=== PATIENT | female | born 1935 | race Caucasian/White ===

== ENCOUNTER 2023-07-22 12:07 | Emergency (ER) | payer MEDICARE, OTHER, SELFPAY ==
[2023-07-22 12:10] VITALS: BP 109/74; PULSE 85; RESP 22; TEMP 36.8; O2SAT 96
--- NOTE | 2023-07-22 12:33 | XRR_ITS ---
PROCEDURE INFORMATION: Exam: XR Chest Exam date and time: 07/22/2023 12:47 PM Age: 88 years old Clinical indication: Cough and dyspnea; Additional info: Dyspnea/cough TECHNIQUE: Imaging protocol: Radiologic exam of the chest. Views: 1 view. COMPARISON: No relevant prior studies available. FINDINGS: Lungs: No consolidation. Pleural spaces: No sizable pleural effusion or pneumothorax. Heart/Mediastinum: No cardiomegaly. Bones/joints: Unremarkable. XR/XR chest 1V portable [id number] IMPRESSION: No acute intrathoracic findings.
--- NOTE | 2023-07-22 12:39 | ECG_ITS ---
[facility] Test Date: 2023-07-22 Pat Name: Cordell Mcdonald Department: Room: Gender: Female Delivery Director: : [id number] Requested By: Mohinder Marquez Order Number: [id number] Carina MD: Keaton Celestin M.D. Measurements Intervals [place] Rate: 81 P: 95 IL: 156 QRS: -28 QRSD: 78 T: 82 QT: 346 QTc: 402 Interpretive Statements SINUS RHYTHM WITH OCCASIONAL SUPRAVENTRICULAR PREMATURE COMPLEXES BORDERLINE LEFT AXIS DEVIATION [QRS AXIS < -20] LOW QRS VOLTAGE IN PRECORDIAL LEADS [QRS DEFLECTION < 1.0 mV IN CHEST LEADS] NONSPECIFIC T-WAVE ABNORMALITY No previous ECG available for comparison Electronically Signed On 07-22-2023 15:28:10 PIANO BENCH ASSEMBLER by Keaton Celestin M.D. [id number]
[2023-07-22 12:57] LABS: ABG PCO2 19.1 mmHg (35-45); ABG PH Result 7.53 (7.35-7.45); Arterial Blood Gas Hematocrit 30.3 % (37-47); Base Excess ABG -5.4 mmol/L (-2.0-2.0); Blood Gas Allen Test Pos; Blood Gas Operator Identificat WALCI; Blood Gas Sample Site Radial, right; Blood Gas Sample Type Arterial; Carboxyhemoglobin 0.1 %THgb (0.4-20.1); HCO3 ABG 15.8 mmol/L (22-26); HGB O2 Sat > 100.0 % (95-100); Ionized Calcium Level - ABG 1.2 mmol/L (1.1-1.4); Methemoglobin < 0.0 % (0.4-1.5); Oxygen Device NRB; Oxygen Saturation ABG > 100.0; Potassium Level - ABG 4.3 mmol/L (3.5-5.0); Total Hemoglobin 9.9 g/dL (12-16)
[2023-07-22 13:11] LABS: Basophils % 0.1 %; Hematocrit 28.7 % (36-47); Lymphocytes # 1.5 10^3/uL (0.8-4.8); Lymphocytes % 9.5 %; Mean Corpuscular HGB Conc 34.1 g/dL (30-55); Mean Corpuscular Hemoglobin 29.6 pg (27-33); Mean Corpuscular Volume 86.7 fl (85-98); Mean Platelet Volume 9.7 fL (7.4-10.4); Monocytes # 1.1 10^3/uL (0.2-0.9); Neutrophils # 12.84 10^3/uL (1.8-7.7); Neutrophils % 82.3 %; Nucleated Red Blood Cells % 0 %; Platelet Count 563 10^3/cmm (157-399); Red Blood Count 3.31 10^6/uL (3.85-5.65); Red Cell Distribution Width 13.2 % (12.1-15.1); White Blood Count 15.62 10^3/uL (3.29-11.43)
[2023-07-22 13:12] LABS: Lactic Sepsis W/Reflex 1.6 mmol/L (0.5-2.2)
[2023-07-22 13:13] LABS: Influenza A by IFA negative (Negative); Influenza B by IFA negative (Negative)
[2023-07-22 13:13] LABS: Troponin(5th) Baseline 37 ng/L (0-10)
[2023-07-22 13:21] LABS: Alanine Aminotransferase 13 U/L (0-33); Albumin Level 3.6 g/dL (3.5-5.2); Alkaline Phosphatase 76 U/L (35-105); Anion Gap 21.3 (5-19); Aspartate Amino Transferase 15 U/L (0-32); Calcium 9.7 mg/dL (8.5-10.5); Carbon Dioxide 17 mmol/L (22-29); Chloride 95 mmol/L (98-107); Creatine Phosphokinase 146 U/L (26-192); Glucose 108 mg/dL (65-115); NT Pro B Type Natriuretic Pept 980 pg/mL (0-450); Osmolality Calculated 301 mOsm/kg (285-295); Potassium 4.3 mmol/L (3.5-5.1); Sodium 129 mmol/L (136-145); Total Bilirubin 0.2 mg/dL (0.15-1.2); Total Protein 6.6 g/dL (6.6-8.7)
[2023-07-22 13:30] LABS: Blood Urea Nitrogen 103 mg/dL (8-23)
--- NOTE | 2023-07-22 13:32 | W.ED.SOB ---
HPI - SOB/Dyspnea General: Chief Complaint: Shortness of Breath/Dyspnea Stated Complaint: resp distress Time Seen by Provider: 07/22/23 12:15 Source: patient Mode of arrival: EMS History of Present Illness: HPI Narrative: 88-year-old female presents emergency room via EMS reported respiratory distress at home patient has significant dementia unable to really contribute meaningfully to her history. She was having some respiratory distress EMS was called. Nurse reports she was in 80% when they arrived. Family also reports when they later arrived that she has been having dark tarry stools even at times clots in her stools and complaining of some abdominal pain this began over the last couple of days and is worsened significantly. In the past she has not been known to have any cancers or bleeding ulceration or previously needed transfusions due to GI bleed she is not on any anticoagulants. Family states she is a Do Not Recussitate and they are not interested in significant workup I been considering detention placement and hospice. MD elicited complaint: shortness of breath and cough Onset (ago): day(s) Timing: constant Severity: moderate Exacerbating factors: nothing Relieving factors: nothing Associated symptoms: Reports abdominal pain and cough; Deny chest pain, myalgias, nausea, paresthesias, rash, sense of impending doom or vomiting Related Data: Home oxygen amount: none Review of Systems Card: Denies: chest pain GI: Reports: abdominal pain, hematochezia and melena; Denies: nausea or vomiting : Denies: dysuria, urinary frequency or urinary urgency [facility] ED PFSH: Medical History (Updated 07/22/23 @ 14:27 by Mohinder Tripathi DO) Dementia Physical Exam Const: GENERAL APPEARANCE: cooperative and comfortable ORIENTATION/CONSCIOUSNESS: Yes awake, Yes oriented to person, Yes oriented to place and Yes oriented to time HENMT: COMMON NORMALS: normocephalic, atraumatic and hearing grossly normal bilaterally HEAD & SCALP: normocephalic and atraumatic Resp: COMMON NORMALS: normal respiratory effort, No retractions, No use of accessory muscles and clear to auscultation bilaterally AUSCULTATION: clear to auscultation bilaterally Cardio: COMMON NORMALS: regular rate, regular rhythm and No murmurs present (Cardio) RATE: regular rate RHYTHM: regular rhythm GI: COMMON NORMALS: No hepatosplenomegaly present AUSCULTATION: Yes normoactive bowel sounds PALPATION: Yes Tenderness to palpation present (GI) Details: RLQ, No Guarding due to palpation present (GI) and Yes No hepatosplenomegaly present Extremity: COMMON NORMALS: normal to inspection, capillary refill normal, no clubbing, cyanosis or edema, no calf tenderness and no pedal edema Neuro: SENSORIUM/ORIENTATION: Yes oriented to person, Yes oriented to place and Yes oriented to time Skin: COMMON NORMALS: no rashes or lesions noted GENERAL SKIN EXAM: no rashes or lesions noted Course Vital Signs: Vital signs: Vital Signs Temperature 98.2 F 07/22/23 12:10 Pulse Rate 82 07/22/23 13:36 Respiratory Rate 18 07/22/23 13:36 Blood Pressure 130/71 07/22/23 13:36 Pulse Oximetry 100 07/22/23 13:36 Oxygen Delivery Me thod Nasal Cannula 07/22/23 13:36 Oxygen Flow Rate 15 07/22/23 12:10 MDM - SOB/Dyspnea Medical Decision Making Family is wishing patient be Do Not Recussitate and does not want to pursue any extensive workups. Based on her labs she has an upper GI bleed. I do think she will require detention level of placement and hospice care since we are not going to be actively treating this. Labs show upper GI bleed family does not wish to pursue any treatment. She is given for IV Protonix here discharged to the detention on oral Protonix. She also be enrolled in hospice Medical Records I reviewed the patient's medical records. Lab Data I reviewed the patient's lab results. 07/22/23 12:24 07/22/23 12:24 Labs/Radiology: Radiology Impressions Chest X-Ray 07/22/23 12:33 IMPRESSION: No acute intrathoracic findings. Laboratory Results WBC 15.62 10^3/uL (3.29-11.43) H 07/22/23 12:24 RBC 3.31 10^6/uL (3.85-5.65) L 07/22/23 12:24 Hgb 9.80 g/dL (11.27-16.99) L 07/22/23 12:24 Hct 28.7 % (36-47) L 07/22/23 12:24 MCV 86.7 fl (85-98) 07/22/23 12:24 MCH 29.6 pg (27-33) 07/22/23 12:24 MCHC 34.1 g/dL (30-55) 07/22/23 12:24 RDW 13.2 % (12.1-15.1) 07/22/23 12:24 Plt Count 563 10^3/cmm (157-399) H 07/22/23 12:24 MPV 9.7 fL (7.4-10.4) 07/22/23 12:24 Neut % (Auto) 82.3 % 07/22/23 12:24 Lymph % (Auto) 9.5 % 07/22/23 12:24 Glenn % (Auto) 7.0 % 07/22/23 12:24 Eos % (Auto) 0.0 % 07/22/23 12:24 Baso % (Auto) 0.1 % 07/22/23 12:24 Neut # (Auto) 12.84 10^3/uL (1.8-7.7) H 07/22/23 12:24 Lymph # (Auto) 1.5 10^3/uL (0.8-4.8) 07/22/23 12:24 Glenn # (Auto) 1.1 10^3/uL (0.2-0.9) H 07/22/23 12:24 Eos # (Auto) 0.0 10^3/uL (0.0-0.8) 07/22/23 12:24 Baso # (Auto) 0.0 10^3/uL (0.0-0.1) 07/22/23 12:24 Nucleated RBC % (auto) 0 % 07/22/23 12:24 Nucleated RBCs # 0.0 /100WBC 07/22/23 12:24 Specimen Type Arterial 07/22/23 12:46 Sample Site Radial, right 07/22/23 12:46 ABG pH 7.53 (7.35-7.45) H 07/22/23 12:46 ABG pCO2 19.1 mmHg (35-45) L* 07/22/23 12:46 ABG pO2 397.0 mmHg (80.0-100.0) H 07/22/23 12:46 ABG HCO3 15.8 mmol/L (22-26) L 07/22/23 12:46 ABG O2 Saturation > 100.0 07/22/23 12:46 ABG Base Excess -5.4 mmol/L (-2.0-2.0) L 07/22/23 12:46 Kelton Test Pos 07/22/23 12:46 A-a O2 Gradient Not Reportable 07/22/23 12:46 Hematocrit 30.3 % (37-47) L 07/22/23 12:46 Hgb O2 Saturation > 100.0 % (95-100) H 07/22/23 12:46 Carboxyhemoglobin 0.1 %THgb (0.4-20.1) L 07/22/23 12:46 Methemoglobin < 0.0 % (0.4-1.5) L 07/22/23 12:46 Total Hemoglobin 9.9 g/dL (12-16) L 07/22/23 12:46 Sodium 128.0 mmol/L (131-143) L 07/22/23 12:46 Potassium 4.3 mmol/L (3.5-5.0) 07/22/23 12:46 Glucose 110.0 mg/dL (70-115) 07/22/23 12:46 Ionized Calcium 1.2 mmol/L (1.1-1.4) 07/22/23 12:46 O2 Delivery Device Nrb 07/22/23 12:46 O2 Liters/Min 15.0 % 07/22/23 12:46 Nurse Sitter ID Wal[place] 07/22/23 12:46 Sodium 129 mmol/L (136-145) L 07/22/23 12:24 Potassium 4.3 mmol/L (3.5-5.1) 07/22/23 12:24 Chloride 95 mmol/L (98-107) L 07/22/23 12:24 Carbon Dioxide 17 mmol/L (22-29) L 07/22/23 12:24 Anion Gap 21.3 (5-19) H 07/22/23 12:24 BUN 103 mg/dL (8-23) H* 07/22/23 12:24 Creatinine 2.6 mg/dL (0.5-0.9) H 07/22/23 12:24 GFR Calculation Not Reportable 07/22/23 12:24 Glucose 108 mg/dL (65-115) 01/08/24 12:24 Calculated Osmolality 301 mOsm/kg (285-295) H 07/22/23 12:24 Lactic Acid 1.6 mmol/L (0.5-2.2) 07/22/23 12:24 Calcium 9.7 mg/dL (8.5-10.5) 07/22/23 12:24 Total Bilirubin 0.2 mg/dL (0.15-1.2) 07/22/23 12:24 AST 15 U/L (0-32) 07/22/23 12:24 ALT 13 U/L (0-33) 07/22/23 12:24 Alkaline Phosphatase 76 U/L (35-105) 07/22/23 12:24 Creatine Kinase 146 U/L (26-192) 07/22/23 12:24 Troponin T Baseline 37 ng/L (0-10) H 07/22/23 12:24 Troponin T 120 Minute 40.12 ng/L (0-10) H 07/22/23 14:18 Delta Troponin T 3.12 ABS# (0-10) 07/22/23 14:18 NT-Pro-B Natriuret Pep 980 pg/mL (0-450) H 07/22/23 12:24 Total Protein 6.6 g/dL (6.6-8.7) 07/22/23 12:24 Albumin 3.6 g/dL (3.5-5.2) 07/22/23 12:24 Globulin 3.0 g/dL (1.3-4.6) 07/22/23 12:24 Coronavirus 229E (PCR) Not detected (NOT DETECT) 07/22/23 12:48 Influenza Type A Ag negative (Negative) 07/22/23 12:49 Influenza Type B Ag negative (Negative) 07/22/23 12:49 SARS-CoV-2 (PCR) Not detected (NOT DETECT) 07/22/23 12:48 All radiology interpretation(s) finalized by discharge Discharge Plan Discharge Patient Disposition: Home Clinical Impression: Acute upper GI bleed, Anemia Condition: Stable Prescriptions: New Protonix 40 mg tablet,delayed release (DR/EC) 40 mg PO BID Qty: 40 0RF Rx Instructions: 1 twice daily for 10 days then once daily Discharge Orders: Discharge ED (Routine); Ordered 07/22/23 Ordered By: Mohinder Tripathi Discharge Diet: Usual diet Discharge Activity: Increase activity as tolerated Patient Instructions: Opioid Safety, Pain Management Activity Restrictions/Additional Instructions: Thank you for choosing [facility] for your healthcare needs today. Please realize this is an emergency room and that we are providing you with a medical screening exam and this may not be complete and all inclusive of all the testing and or work up that you may need to determine your ailment or severity of your illness. It is very important that you follow up as instructed or that you return to the Emergency Department should you have concerns or if your condition changes or worsens in any way. You were seen today with complaints of shortness of breath. Evaluation in the emergency room showed normal chest x-ray but you did have anemia and suspect you have an upper GI bleed. After discussion with family since you are a Do Not Recussitate they requested we transport to the detention on hospice. You were given Protonix IV in the emergency room be started on a medicine to protect your stomach. Coding Level of Care Code ED Coal Crusher Operator for Joey Galo
[2023-07-22 13:36] VITALS: BP 130/71; PULSE 82; RESP 18; O2SAT 100
--- NOTE | 2023-07-22 13:46 | PC.SOCIAL ---
Placement with Hospice Spoke with patient's son who states that they have chosen [facility] and [facility]. Referral faxed to both, including [id number] signed by Dr. Tripathi. Jadyn at [facility] states that they accept patient. Spoke with Guicho at [facility], she will forward referral to [facility].
--- NOTE | 2023-07-22 14:15 | PC.SOCIAL ---
Annette at [facility] calls and states that they can accept patient. Jadyn at [facility] states that they can accept patient. Updated patient's son and patient.
[2023-07-22 14:38] LABS: Adenovirus Not Detected (NOT DETECT); Chlamydia Pneumoniae Not Detected (NOT DETECT); Coronavirus 229E,HKU1,NL63,OC4 Not Detected (NOT DETECT); Human Metapneumovirus Not Detected (NOT DETECT); Human Rhinovirus/Enterovirus Not Detected (NOT DETECT); Influenza A Not Detected (NOT DETECT); Influenza A H1 Not Detected (NOT DETECT); Influenza A H1-2009 Not Detected (NOT DETECT); Influenza A H3 Not Detected (NOT DETECT); Influenza B Not Detected (NOT DETECT); Mycoplasma Pneumoniae Not Detected (NOT DETECT); Parainfluenza Virus Type 1 Not Detected (NOT DETECT); Parainfluenza Virus Type 2 Not Detected (NOT DETECT); Parainfluenza Virus Type 3 Not Detected (NOT DETECT); Parainfluenza Virus Type 4 Not Detected (NOT DETECT); Respiratory Syncytial Virus A Not Detected (NOT DETECT); Respiratory Syncytial Virus B Not Detected (NOT DETECT); SARS-COV-2 Not Detected (NOT DETECT)
[2023-07-22 14:43] LABS: Troponin 5 2HR 40.12 ng/L (0-10); Troponin 5 2HR Delta 3.12 ABS# (0-10)
[2023-07-22] MEDS: pantoprazole 40 mg SDV 80 MG IVP (14:59)
== END 2023-07-22 15:06 | disposition home or self-care (01) ==
PROVIDERS: Emergency Provider Family Medicine
DX: K92.2 Gastrointestinal hemorrhage, unspecified (principal); D64.9 Anemia, unspecified; Z11.52 Encounter for screening for COVID-19; F03.90 Unspecified dementia, unspecified severity, without behavioral disturbance, psychotic disturbance, mood disturbance, and anxiety
CPT/HCPCS: 36415; 36600; 71045; 80051; 80053; 82330; 82550; 82805; 83605; 83880; 84484; 85025; 87635; 87804; 93005; 96374; 99285; C9113